=== PATIENT | male | born 1945 | race Caucasian/White ===

== ENCOUNTER 2022-11-06 07:20 | Emergency (ER) | payer MEDICARE ==
[~2022-11-06] VITALS: Ht 188 cm; Wt 97.7 kg
[2022-11-06 07:25] VITALS: BP 169/88; PULSE 59; TEMP 97.9; O2SAT 96
[2022-11-06] MEDS ORDERED: methylPREDNISolone sod succ 125mg/2ml vial IM ONE (09:25)
[2022-11-06] MEDS ORDERED: ketorolac trometh inj. 60 MG/2 ML VIAL IM ONE (09:25)
[2022-11-06] MEDS ORDERED: METH4TAB81 PO (09:41)
[2022-11-06 10:28] VITALS: RESP 17
== END 2022-11-06 10:59 | disposition home or self-care (01) ==
LOC: ER 07:20
DX: S83.92XA Sprain of unspecified site of left knee, initial encounter (principal); X58.XXXA Exposure to other specified factors, initial encounter; Y93.89 Activity, other specified; Y92.89 Other specified places as the place of occurrence of the external cause; Y99.8 Other external cause status
CPT/HCPCS: 29505; 73560; 96372; 99284; J1885; J2930